=== PATIENT | female | born 1980 | race Caucasian/White ===

== ENCOUNTER 2024-05-10 15:24 | Emergency (ER) | payer OTHER, SELFPAY ==
[2024-05-10] VITALS (51 sets, daily range): BP systolic 99–111; BP diastolic 5–59; PULSE 81–108; RESP 11–36; TEMP 36.9–37.4; O2SAT 98–100; BMI 21.4
--- NOTE | 2024-05-10 15:38 | EKG_ITS ---
[place] [id number] [address] Test Date: 2024-05-10 Pat Name: Merly Davis Department: Room: Gender: Female Certified Surgical First Assistant: SARA : 1980 Requested By: Order Number: [id number] Reading MD: Reinaldo Desai MD Measurements Intervals [place] Rate: 94 P: 79 NE: 136 QRS: 71 QRSD: 84 T: 40 QT: 350 QTc: 437 Interpretive Statements Normal sinus rhythm Nonspecific ST abnormality Electronically Signed On 05-11-2024 7:30:51 PST by Reinaldo Desai MD
[2024-05-10 16:19] LABS: Add Manual Diff / Slide Review NO; Basophils Absolute Auto 0 /uL (0-100); Basophils Percent Auto 0.6 % (0-2); Eosinophils Absolute Auto 0 /uL (0-450); Eosinophils Percent Auto 0.6 % (2-4); Lymphocytes Absolute Auto 1700 /uL (1100-4500); Lymphocytes Percent Auto 27.9 % (25-40); Mean Corpuscular HGB Conc 34.5 % (30-36); Mean Corpuscular Hemoglobin 33.5 PG (26-34); Mean Corpuscular Volume 97.1 fL (80-100); Monocytes Absolute Auto 500 /uL (0-900); Monocytes Percent Auto 9.1 % (3-14); Neutrophils Absolute Auto 3700 /uL (1500-7000); Neutrophils Percent Auto 61.8 % (50-75); Platelet Count 240 X10^3/uL (150-400); Red Blood Cell Count 1.58 X10^6/uL (4.0-5.2); Red Cell Distribution Width 12.6 % (11.6-14.8); White Blood Cell Count 5.9 X10^3/uL (4.5-11.0)
[2024-05-10 16:21] LABS: Hematocrit 15.4 % (36-46); Hemoglobin 5.3 g/dL (12.0-16.0)
--- NOTE | 2024-05-10 16:22 | ED.RECABL ---
HPI - Recheck/Abnormal Lab/Rx <Francisco Arroyo MD - Last Filed: 05/15/24 15:33> General Chief Complaint: Urogenital-Female Stated Complaint: sent by [facility], blood transfusion Time Seen by Provider: 05/10/24 16:15 Source: patient Mode of arrival: Ambulatory History of Present Illness HPI narrative: [place] for vaginal bleeding may dizziness shortness of breath, anemia. Patient has had vaginal bleeding for the past 2-3 weeks. It has slowed down. As of now she is having welfare supervisor than usual menstrual bleeding. Denies any pain. Denies any previous history of uterine problems. No previous pregnancies. No family history of uterine cancer. No syncope Related Data Allergies Allergy/AdvReac Type Severity Reaction Status Date / Time No Known Drug Allergies Allergy Verified 05/10/24 16:15 Review of Systems <Francisco Arroyo MD - Last Filed: 05/15/24 15:33> Review of Systems Narrative: GENERAL: Negative chills, positive fatigue, positive malaise, negative fever, sweats. HEENT: Negative sinus pain, ear pain, sore throat RESPIRATORY: Positive dyspnea, negative cough CARDIOVASCULAR: Negative chest pain, palpitations GASTROINTESTINAL: Negative nausea, vomiting, abdominal pain : Negative dysuria, frequency, hematuria, positive vaginal bleeding MUSCULOSKELETAL: Negative muscle or bony pain SKIN: Negative rash, skin lesions NEUROLOGIC: Negative weakness, numbness, positive dizzy ROS Unobtainable: All systems reviewed & are unremarkable except as noted in HPI and below Patient History <Francisco Arroyo MD - Last Filed: 05/15/24 15:33> Medical History (Updated 05/10/24 @ 18:49 by Erma Bhakta MD) Cervical mass Social History Smoking Status: Current every day smoker Tobacco: How many years used: 25 Smoking Status: Current every day smoker tobacco type: cigarettes alcohol intake frequency: holidays/special occasions only Substance Use Type: does not use Exam <Francisco Arroyo MD - Last Filed: 05/15/24 15:33> Narrative Exam Narrative: GENERAL: in no distress, not toxic not dyspneic HEAD: Normocephalic. EYES: Pupils equal round pale conjunctiva ENT: Mucous membranes moist. NECK: Trachea midline. CARDIOVASCULAR: Regular rate and rhythm RESPIRATORY: Clear to auscultation. Breath sounds equal bilaterally. No wheezes, rales, or rhonchi. GASTROINTESTINAL: Abdomen soft, non-tender EXTREMITIES: No gross deformities. BACK: No flank tenderness. NEURO: AOx4. Clear speech SKIN: Warm and dry PSYCH: Not anxious, is cooperative Initial Vital Signs Initial Vital Signs: Vital Signs Pulse Rate 107 H 05/10/24 15:33 Pulse Oximetry 100 05/10/24 15:33 <Julia Mckeon MD - Last Filed: 05/12/24 00:21> Initial Vital Signs Initial Vital Signs: Vital Signs Pulse Rate 107 H 05/10/24 15:33 Pulse Oximetry 100 05/10/24 15:33 <Rudi Metcalf DO - Last Filed: 05/11/24 15:58> Initial Vital Signs Initial Vital Signs: Vital Signs Pulse Rate 107 H 05/10/24 15:33 Pulse Oximetry 100 05/10/24 15:33 Course <Francisco Arroyo MD - Last Filed: 05/15/24 15:33> Orders Ordered: Discontinued Medications Tranexamic Acid 1,000 mg/ (Sodium Chloride) 100 mls @ 200 mls/hr IV NOW ONE Stop: 05/10/24 19:08 Last Infusion: 05/10/24 21:20 Dose: Infused Documented By: Admin: 05/10/24 19:04 Dose: 200 mls/hr Documented By: RB Vital Signs Vital signs: Vital Signs - 8 hr 05/11/24 08:00 05/11/24 08:00 05/11/24 08:15 Temperature Pulse Rate 74 75 Respiratory Rate 10 L 18 Blood Pressure 88/51 L Pulse Oximetry 98 98 05/11/24 08:30 05/11/24 08:30 05/11/24 08:45 Temperature Pulse Rate 80 72 Respiratory Rate 17 18 Blood Pressure 90/55 L Pulse Oximetry 98 98 05/11/24 09:00 05/11/24 09:00 05/11/24 09:15 Temperature Pulse Rate 82 79 Respiratory Rate 19 17 Blood Pressure 94/50 L Pulse Oximetry 98 98 05/11/24 09:30 05/11/24 09:30 05/11/24 09:45 Temperature Pulse Rate 82 79 Respiratory Rate 11 L 16 Blood Pressure 94/50 L Pulse Oximetry 99 98 05/11/24 10:00 05/11/24 10:00 05/11/24 10:36 Temperature Pulse Rate 86 81 Respiratory Rate 16 27 H Blood Pressure 91/54 L Pulse Oximetry 99 98 05/11/24 10:37 05/11/24 10:37 05/11/24 10:45 Temperature Pulse Rate 79 88 Respiratory Rate 17 27 H Blood Pressure 90/56 L Pulse Oximetry 98 99 05/11/24 11:00 05/11/24 11:00 05/11/24 11:15 Temperature Pulse Rate 88 86 Respiratory Rate 16 Blood Pressure 98/61 Pulse Oximetry 100 99 05/11/24 11:30 05/11/24 11:30 05/11/24 11:45 Temperature Pulse Rate 83 78 Respiratory Rate 16 16 Blood Pressure 93/58 L Pulse Oximetry 99 98 05/11/24 12:00 05/11/24 12:00 05/11/24 12:15 Temperature Pulse Rate 87 76 Respiratory Rate 24 11 L Blood Pressure 95/58 L Pulse Oximetry 100 98 05/11/24 12:30 05/11/24 12:30 05/11/24 12:45 Temperature Pulse Rate 74 69 Respiratory Rate 17 18 Blood Pressure 90/54 L Pulse Oximetry 98 98 05/11/24 13:00 05/11/24 13:00 05/11/24 13:15 Temperature Pulse Rate 73 70 Respiratory Rate 15 17 Blood Pressure 93/54 L Pulse Oximetry 99 99 05/11/24 13:40 05/11/24 13:41 05/11/24 13:41 Temperature Pulse Rate 89 83 Respiratory Rate 22 19 Blood Pressure 102/60 Pulse Oximetry 99 99 05/11/24 13:45 05/11/24 14:00 05/11/24 14:00 Temperature Pulse Rate 82 91 H Respiratory Rate 23 Blood Pressure 95/54 L Pulse Oximetry 99 100 05/11/24 14:15 05/11/24 14:30 05/11/24 14:30 Temperature Pulse Rate 77 83 Respiratory Rate 16 11 L Blood Pressure 96/57 L Pulse Oximetry 98 98 05/11/24 14:45 05/11/24 15:00 05/11/24 15:00 Temperature Pulse Rate 80 74 Respiratory Rate 19 17 Blood Pressure 94/55 L Pulse Oximetry 100 99 05/11/24 15:15 05/11/24 15:30 05/11/24 15:30 Temperature Pulse Rate 76 75 Respiratory Rate 17 17 Blood Pressure 98/59 L Pulse Oximetry 99 99 05/11/24 15:38 Temperature 99 F Pulse Rate Respiratory Rate Blood Pressure Pulse Oximetry <Julia Mckeon MD - Last Filed: 05/12/24 00:21> Orders Ordered: Discontinued Medications Tranexamic Acid 1,000 mg/ (Sodium Chloride) 100 mls @ 200 mls/hr IV NOW ONE Stop: 05/10/24 19:08 Last Infusion: 05/10/24 21:20 Dose: Infused Documented By: Admin: 05/10/24 19:04 Dose: 200 mls/hr Documented By: ML Vital Signs Vital signs: Vital Signs - 8 hr 05/11/24 08:00 05/11/24 08:00 05/11/24 08:15 Temperature Pulse Rate 74 75 Respiratory Rate 10 L 18 Blood Pressure 88/51 L Pulse Oximetry 98 98 05/11/24 08:30 05/11/24 08:30 05/11/24 08:45 Temperature Pulse Rate 80 72 Respiratory Rate 17 18 Blood Pressure 90/55 L Pulse Oximetry 98 98 05/11/24 09:00 05/11/24 09:00 05/11/24 09:15 Temperature Pulse Rate 82 79 Respiratory Rate 19 17 Blood Pressure 94/50 L Pulse Oximetry 98 98 05/11/24 09:30 05/11/24 09:30 05/11/24 09:45 Temperature Pulse Rate 82 79 Respiratory Rate 11 L 16 Blood Pressure 94/50 L Pulse Oximetry 99 98 05/11/24 10:00 05/11/24 10:00 05/11/24 10:36 Temperature Pulse Rate 86 81 Respiratory Rate 16 27 H Blood Pressure 91/54 L Pulse Oximetry 99 98 05/11/24 10:37 05/11/24 10:37 05/11/24 10:45 Temperature Pulse Rate 79 88 Respiratory Rate 17 27 H Blood Pressure 90/56 L Pulse Oximetry 98 99 05/11/24 11:00 05/11/24 11:00 05/11/24 11:15 Temperature Pulse Rate 88 86 Respiratory Rate 16 Blood Pressure 98/61 Pulse Oximetry 100 99 05/11/24 11:30 05/11/24 11:30 05/11/24 11:45 Temperature Pulse Rate 83 78 Respiratory Rate 16 16 Blood Pressure 93/58 L Pulse Oximetry 99 98 05/11/24 12:00 05/11/24 12:00 05/11/24 12:15 Temperature Pulse Rate 87 76 Respiratory Rate 24 11 L Blood Pressure 95/58 L Pulse Oximetry 100 98 05/11/24 12:30 05/11/24 12:30 05/11/24 12:45 Temperature Pulse Rate 74 69 Respiratory Rate 17 18 Blood Pressure 90/54 L Pulse Oximetry 98 98 05/11/24 13:00 05/11/24 13:00 05/11/24 13:15 Temperature Pulse Rate 73 70 Respiratory Rate 15 17 Blood Pressure 93/54 L Pulse Oximetry 99 99 05/11/24 13:40 05/11/24 13:41 05/11/24 13:41 Temperature Pulse Rate 89 83 Respiratory Rate 22 19 Blood Pressure 102/60 Pulse Oximetry 99 99 05/11/24 13:45 05/11/24 14:00 05/11/24 14:00 Temperature Pulse Rate 82 91 H Respiratory Rate 23 Blood Pressure 95/54 L Pulse Oximetry 99 100 05/11/24 14:15 05/11/24 14:30 05/11/24 14:30 Temperature Pulse Rate 77 83 Respiratory Rate 16 11 L Blood Pressure 96/57 L Pulse Oximetry 98 98 05/11/24 14:45 05/11/24 15:00 05/11/24 15:00 Temperature Pulse Rate 80 74 Respiratory Rate 19 17 Blood Pressure 94/55 L Pulse Oximetry 100 99 05/11/24 15:15 05/11/24 15:30 05/11/24 15:30 Temperature Pulse Rate 76 75 Respiratory Rate 17 17 Blood Pressure 98/59 L Pulse Oximetry 99 99 05/11/24 15:38 Temperature 99 F Pulse Rate Respiratory Rate Blood Pressure Pulse Oximetry <Rudi Metcalf, DO - Last Filed: 05/11/24 15:58> Orders Ordered: Discontinued Medications Tranexamic Acid 1,000 mg/ (Sodium Chloride) 100 mls @ 200 mls/hr IV NOW ONE Stop: 05/10/24 19:08 Last Infusion: 05/10/24 21:20 Dose: Infused Documented By: Admin: 05/10/24 19:04 Dose: 200 mls/hr Documented By: RB Vital Signs Vital signs: Vital Signs - 8 hr 05/11/24 08:00 05/11/24 08:00 05/11/24 08:15 Temperature Pulse Rate 74 75 Respiratory Rate 10 L 18 Blood Pressure 88/51 L Pulse Oximetry 98 98 05/11/24 08:30 05/11/24 08:30 05/11/24 08:45 Temperature Pulse Rate 80 72 Respiratory Rate 17 18 Blood Pressure 90/55 L Pulse Oximetry 98 98 05/11/24 09:00 05/11/24 09:00 05/11/24 09:15 Temperature Pulse Rate 82 79 Respiratory Rate 19 17 Blood Pressure 94/50 L Pulse Oximetry 98 98 05/11/24 09:30 05/11/24 09:30 05/11/24 09:45 Temperature Pulse Rate 82 79 Respiratory Rate 11 L 16 Blood Pressure 94/50 L Pulse Oximetry 99 98 05/11/24 10:00 05/11/24 10:00 05/11/24 10:36 Temperature Pulse Rate 86 81 Respiratory Rate 16 27 H Blood Pressure 91/54 L Pulse Oximetry 99 98 05/11/24 10:37 05/11/24 10:37 05/11/24 10:45 Temperature Pulse Rate 79 88 Respiratory Rate 17 27 H Blood Pressure 90/56 L Pulse Oximetry 98 99 05/11/24 11:00 05/11/24 11:00 05/11/24 11:15 Temperature Pulse Rate 88 86 Respiratory Rate 16 Blood Pressure 98/61 Pulse Oximetry 100 99 05/11/24 11:30 05/11/24 11:30 05/11/24 11:45 Temperature Pulse Rate 83 78 Respiratory Rate 16 16 Blood Pressure 93/58 L Pulse Oximetry 99 98 05/11/24 12:00 05/11/24 12:00 05/11/24 12:15 Temperature Pulse Rate 87 76 Respiratory Rate 24 11 L Blood Pressure 95/58 L Pulse Oximetry 100 98 05/11/24 12:30 05/11/24 12:30 05/11/24 12:45 Temperature Pulse Rate 74 69 Respiratory Rate 17 18 Blood Pressure 90/54 L Pulse Oximetry 98 98 05/11/24 13:00 05/11/24 13:00 05/11/24 13:15 Temperature Pulse Rate 73 70 Respiratory Rate 15 17 Blood Pressure 93/54 L Pulse Oximetry 99 99 05/11/24 13:40 05/11/24 13:41 05/11/24 13:41 Temperature Pulse Rate 89 83 Respiratory Rate 22 19 Blood Pressure 102/60 Pulse Oximetry 99 99 05/11/24 13:45 05/11/24 14:00 05/11/24 14:00 Temperature Pulse Rate 82 91 H Respiratory Rate 23 Blood Pressure 95/54 L Pulse Oximetry 99 100 05/11/24 14:15 05/11/24 14:30 05/11/24 14:30 Temperature Pulse Rate 77 83 Respiratory Rate 16 11 L Blood Pressure 96/57 L Pulse Oximetry 98 98 05/11/24 14:45 05/11/24 15:00 05/11/24 15:00 Temperature Pulse Rate 80 74 Respiratory Rate 19 17 Blood Pressure 94/55 L Pulse Oximetry 100 99 05/11/24 15:15 05/11/24 15:30 05/11/24 15:30 Temperature Pulse Rate 76 75 Respiratory Rate 17 17 Blood Pressure 98/59 L Pulse Oximetry 99 99 05/11/24 15:38 Temperature 99 F Pulse Rate Respiratory Rate Blood Pressure Pulse Oximetry MDM - Recheck/Abnormal Lab/Rx <Francisco Arroyo MD - Last Filed: 05/15/24 15:33> Lab Data 05/10/24 21:05 05/10/24 16:04 Labs: Lab Results 05/10/24 05/10/24 05/10/24 Range/Units 15:57 16:04 21:05 WBC 5.9 (4.5-11.0) X10^3/uL RBC 1.58 L (4.0-5.2) X10^6/uL Hgb 5.3 L* 7.2 L (12.0-16.0) g/dL Hct 15.4 L* 21.0 L (36-46) % MCV 97.1 (80-100) fL MCH 33.5 (26-34) PG MCHC 34.5 (30-36) % RDW 12.6 (11.6-14.8) % Plt Count 240 (150-400) X10^3/uL Neut % (Auto) 61.8 (50-75) % Lymph % (Auto) 27.9 (25-40) % [place] % (Auto) 9.1 (3-14) % Eos % (Auto) 0.6 L (2-4) % Baso % (Auto) 0.6 (0-2) % Neut # (Auto) 3700 (6466-0652) /uL Lymph # (Auto) 1700 (0697-3785) /uL [place] # (Auto) 500 (0-900) /uL Eos # (Auto) 0 (0-450) /uL Baso # (Auto) 0 (0-100) /uL Sodium 131 L (137-145) mmol/L Potassium 3.4 (3.4-5.1) mmol/L Chloride 102 (98-107) mmol/L Carbon Dioxide 26 (22-32) mmol/L BUN 16 (7-17) mg/dL Creatinine 0.63 (0.52-1.04) mg/dL Estimated GFR > 60 (>60) mL/min BUN/Creatinine Ratio 25.4 H (6-22) Glucose 123 H (70-100) mg/dL Calcium 8.9 (8.4-10.2) mg/dL Urine RBC 0-1/hpf (0-5/HPF) Urine WBC 0-1/hpf (0-5/HPF) Ur Squamous Epith Cells 1-5 /hpf (0-5/HPF) Urine Bacteria Occasional (0-1) (None) Urine Mucus 1+ H (Negative) Ur Culture Indicated? Cult not indicated Vol Urine Centrifuged 10ml (spun) Blood Type B Negative Antibody Screen Negative Crossmatch See Detail Point of Care Testing Test Results Negative Urine Dip Bedside Urine Glucose Negative Bedside Urine Bilirubin - Negative Bedside Urine Ketone - Negative Urine Specific [place] 1.020 Bedside Urine Occult Blood +/- Bedside Urine pH 6.0 Bedside Urine Protein - Negative Bedside Urine Urobilinogen - Negative Bedside Urine Nitrite - Negative Bedside Urine Leukocytes - Negative Esterase [facility] Narrative Medical decision making narrative: Patient arrives here with from [facility] on private vehicle for vaginal bleeding may dizziness shortness of breath, anemia. Patient has had vaginal bleeding for the past 2-3 weeks. It has slowed down. As of now she is having welfare supervisor than usual menstrual bleeding. Denies any pain. Denies any previous history of uterine problems. No previous pregnancies. No family history of uterine cancer. No syncope After history and exam CBC CMP type and screen transfuse 2 units MDM Medical records reviewed: No recent visit for this complaint Differential considered: Includes but not limited to uterine cancer dysfunctional uterine bleeding Lab Test results independently reviewed as above. Pertinent findings: Hemoglobin 5.3 Independently reviewed EKG normal sinus rhythm rate 94 Imaging studies independently reviewed: None indicated at this time Consultations: 4:49 p.m.. Spoke with director strategic account management, Dr. Bhakta, she will come and see patient. 5:[address] bhakta, has done a pelvic exam. This is likely cervical cancer and unable to keep patient here patient will need to be transferred. Treatments: 2 PRBC Re-evaluations: Patient does agree understand for admission for blood transfusion and director strategic account management consult Discussion: Appropriate for admission for blood transfusion angio man evaluation and treatment. Diagnosis: Anemia dysfunctional uterine bleeding 6:[address] Arroyo: Sign out to Dr. Mckeon, patient will need to be transferred for gynecology Oncology Services. Dr Bhakta has seen pt <Julia Mckeon MD - Last Filed: 05/12/24 00:21> Lab Data Labs: Lab Results 05/10/24 05/10/24 05/10/24 Range/Units 15:57 16:04 21:05 WBC 5.9 (4.5-11.0) X10^3/uL RBC 1.58 L (4.0-5.2) X10^6/uL Hgb 5.3 L* 7.2 L (12.0-16.0) g/dL Hct 15.4 L* 21.0 L (36-46) % MCV 97.1 (80-100) fL MCH 33.5 (26-34) PG MCHC 34.5 (30-36) % RDW 12.6 (11.6-14.8) % Plt Count 240 (150-400) X10^3/uL Neut % (Auto) 61.8 (50-75) % Lymph % (Auto) 27.9 (25-40) % [place] % (Auto) 9.1 (3-14) % Eos % (Auto) 0.6 L (2-4) % Baso % (Auto) 0.6 (0-2) % Neut # (Auto) 3700 (3123-3069) /uL Lymph # (Auto) 1700 (4986-5700) /uL [place] # (Auto) 500 (0-900) /uL Eos # (Auto) 0 (0-450) /uL Baso # (Auto) 0 (0-100) /uL Sodium 131 L (137-145) mmol/L Potassium 3.4 (3.4-5.1) mmol/L Chloride 102 (98-107) mmol/L Carbon Dioxide 26 (22-32) mmol/L BUN 16 (7-17) mg/dL Creatinine 0.63 (0.52-1.04) mg/dL Estimated GFR > 60 (>60) mL/min BUN/Creatinine Ratio 25.4 H (6-22) Glucose 123 H (70-100) mg/dL Calcium 8.9 (8.4-10.2) mg/dL Urine RBC 0-1/hpf (0-5/HPF) Urine WBC 0-1/hpf (0-5/HPF) Ur Squamous Epith Cells 1-5 /hpf (0-5/HPF) Urine Bacteria Occasional (0-1) (None) Urine Mucus 1+ H (Negative) Ur Culture Indicated? Cult not indicated Vol Urine Centrifuged 10ml (spun) Blood Type B Negative Antibody Screen Negative Crossmatch See Detail Point of Care Testing Test Results Negative Urine Dip Bedside Urine Glucose Negative Bedside Urine Bilirubin - Negative Bedside Urine Ketone - Negative Urine Specific [place] 1.020 Bedside Urine Occult Blood +/- Bedside Urine pH 6.0 Bedside Urine Protein - Negative Bedside Urine Urobilinogen - Negative Bedside Urine Nitrite - Negative Bedside Urine Leukocytes - Negative Esterase MDM Narrative Medical decision making narrative: Patient arrives here with from [facility] on private vehicle for vaginal bleeding may dizziness shortness of breath, anemia. Patient has had vaginal bleeding for the past 2-3 weeks. It has slowed down. As of now she is having welfare supervisor than usual menstrual bleeding. Denies any pain. Denies any previous history of uterine problems. No previous pregnancies. No family history of uterine cancer. No syncope After history and exam CBC CMP type and screen transfuse 2 units MDM Medical records reviewed: No recent visit for this complaint Differential considered: Includes but not limited to uterine cancer dysfunctional uterine bleeding Lab Test results independently reviewed as above. Pertinent findings: Hemoglobin 5.3 Independently reviewed EKG normal sinus rhythm rate 94 Imaging studies independently reviewed: None indicated at this time Consultations: 4:49 p.m.. Spoke with director strategic account management, Dr. Bhakta, she will come and see patient. 5:[address] bhakta, has done a pelvic exam. This is likely cervical cancer and unable to keep patient here patient will need to be transferred. Treatments: 2 PRBC Re-evaluations: Patient does agree understand for admission for blood transfusion and director strategic account management consult Discussion: Appropriate for admission for blood transfusion angio man evaluation and treatment. Diagnosis: Anemia dysfunctional uterine bleeding 6:[address] Arroyo: Sign out to Dr. Mckeon, patient will need to be transferred for gynecology Oncology Services. Dr Bhakta has seen pt Dr. Mckeon: Care of patient is signed out to me by Dr. Arroyo. Review of labs, imaging, OBGYN report reviewed. Patient resting comfortably in bed, she was in the middle of receiving her 2nd unit of packed red blood cells. She states that she was not having any bleeding at this time. Per [facility] recommendations 1g TXA administered. Will recheck Hgb after 2u PRBCs. requests that we let them know if patient starts bleeding again as then she would need higher level of care. Dr. Bhakta stated that if patient bled overnight while awaiting transport that she would come in and pack the patient. Hemoglobin after 2nd unit PRBCs 7.2. Since patient was at high-risk for bleeding an additional unit ordered for transfusion. No additional units we will be ordered unless patient begins bleeding. Care of patient signed over to Dr. Metcalf at shift change. Dr metcalf: Received turned over. Review patient's history and physical. Patient was remained stable. No continued bleeding. Has been accepted at the [facility]. We now have bed assignment. Transport has been arranged. Patient was stable for transport. <Rudi Metcalf, DO - Last Filed: 05/11/24 15:58> Lab Data Attestation: I reviewed the patient's lab results. Labs: Lab Results 05/10/24 05/10/24 05/10/24 Range/Units 15:57 16:04 21:05 WBC 5.9 (4.5-11.0) X10^3/uL RBC 1.58 L (4.0-5.2) X10^6/uL Hgb 5.3 L* 7.2 L (12.0-16.0) g/dL Hct 15.4 L* 21.0 L (36-46) % MCV 97.1 (80-100) fL MCH 33.5 (26-34) PG MCHC 34.5 (30-36) % RDW 12.6 (11.6-14.8) % Plt Count 240 (150-400) X10^3/uL Neut % (Auto) 61.8 (50-75) % Lymph % (Auto) 27.9 (25-40) % [place] % (Auto) 9.1 (3-14) % Eos % (Auto) 0.6 L (2-4) % Baso % (Auto) 0.6 (0-2) % Neut # (Auto) 3700 (3901-3294) /uL Lymph # (Auto) 1700 (5996-9823) /uL [place] # (Auto) 500 (0-900) /uL Eos # (Auto) 0 (0-450) /uL Baso # (Auto) 0 (0-100) /uL Sodium 131 L (137-145) mmol/L Potassium 3.4 (3.4-5.1) mmol/L Chloride 102 (98-107) mmol/L Carbon Dioxide 26 (22-32) mmol/L BUN 16 (7-17) mg/dL Creatinine 0.63 (0.52-1.04) mg/dL Estimated GFR > 60 (>60) mL/min BUN/Creatinine Ratio 25.4 H (6-22) Glucose 123 H (70-100) mg/dL Calcium 8.9 (8.4-10.2) mg/dL Urine RBC 0-1/hpf (0-5/HPF) Urine WBC 0-1/hpf (0-5/HPF) Ur Squamous Epith Cells 1-5 /hpf (0-5/HPF) Urine Bacteria Occasional (0-1) (None) Urine Mucus 1+ H (Negative) Ur Culture Indicated? Cult not indicated Vol Urine Centrifuged 10ml (spun) Blood Type B Negative Antibody Screen Negative Crossmatch See Detail Point of Care Testing Test Results Negative Urine Dip Bedside Urine Glucose Negative Bedside Urine Bilirubin - Negative Bedside Urine Ketone - Negative Urine Specific [place] 1.020 Bedside Urine Occult Blood +/- Bedside Urine pH 6.0 Bedside Urine Protein - Negative Bedside Urine Urobilinogen - Negative Bedside Urine Nitrite - Negative Bedside Urine Leukocytes - Negative Esterase MDM Narrative Medical decision making narrative: Patient arrives here with from [facility] on private vehicle for vaginal bleeding may dizziness shortness of breath, anemia. Patient has had vaginal bleeding for the past 2-3 weeks. It has slowed down. As of now she is having welfare supervisor than usual menstrual bleeding. Denies any pain. Denies any previous history of uterine problems. No previous pregnancies. No family history of uterine cancer. No syncope After history and exam CBC CMP type and screen transfuse 2 units MDM Medical records reviewed: No recent visit for this complaint Differential considered: Includes but not limited to uterine cancer dysfunctional uterine bleeding Lab Test results independently reviewed as above. Pertinent findings: Hemoglobin 5.3 Independently reviewed EKG normal sinus rhythm rate 94 Imaging studies independently reviewed: None indicated at this time Consultations: 4:49 p.m.. Spoke with director strategic account management, Dr. Bhakta, she will come and see patient. 5:[address] bhakta, has done a pelvic exam. This is likely cervical cancer and unable to keep patient here patient will need to be transferred. Treatments: 2 PRBC Re-evaluations: Patient does agree understand for admission for blood transfusion and director strategic account management consult Discussion: Appropriate for admission for blood transfusion angio man evaluation and treatment. Diagnosis: Anemia dysfunctional uterine bleeding 6:[address] Arroyo: Sign out to Dr. Mckeon, patient will need to be transferred for gynecology Oncology Services. Dr Bhakta has seen pt Dr. Mckeon: Care of patient is signed out to me by Dr. Arroyo. Review of labs, imaging, OBGYN report reviewed. Patient resting comfortably in bed, she was in the middle of receiving her 2nd unit of packed red blood cells. She states that she was not having any bleeding at this time. Per [facility] recommendations 1g TXA administered. Will recheck Hgb after 2u PRBCs. requests that we let them know if patient starts bleeding again as then she would need higher level of care. Dr. Bhakta stated that if patient bled overnight while awaiting transport that she would come in and pack the patient. Hemoglobin after 2nd unit PRBCs 7.2. Since patient was at high-risk for bleeding 1/3 unit ordered for transfusion. No additional units we will be ordered unless patient begins bleeding. Dr metcalf: Received turned over. Review patient's history and physical. Patient was remained stable. No continued bleeding. Has been accepted at the [facility]. We now have bed assignment. Transport has been arranged. Patient was stable for transport. Critical Care Time <Francisco Arroyo MD - Last Filed: 05/15/24 15:33> Critical Care Time Attestation: Critical Care Time 35 minutes: Critical care time is separate from other billable procedures. This critical care time includes consultation with family and other consulting doctors, review of records, and interpretation of data from labs, etc. Discharge Plan Departure Patient Disposition: [facility] Clinical Impression: DUB (dysfunctional uterine bleeding) Anemia Qualifiers: Anemia type: unspecified type Qualified Code(s): D64.9 - Anemia, unspecified Referrals: Kisha Peters PA-C [Primary Care Provider] -
[2024-05-10 16:23] LABS: BUN Creatinine Ratio 25.4 (6-22); Blood Urea Nitrogen 16 mg/dL (7-17); Calcium 8.9 mg/dL (8.4-10.2); Carbon Dioxide 26 mmol/L (22-32); Chloride 102 mmol/L (98-107); Estimated Glomerular Filt Rate > 60 mL/min (>60); Glucose 123 mg/dL (70-100); HEMOLYSIS < 15 (0-50); Potassium 3.4 mmol/L (3.4-5.1); Sodium 131 mmol/L (137-145)
[2024-05-10 17:02] LABS: Bacteria Urine Occasional (0-1); Culture Indicated Urine Cult Not Indicated; Mucus Urine 1+ (Negative); RBC Urine 0-1/HPF (0-5/HPF); Squamous Epithelial Cell Urine 1-5 /HPF (0-5/HPF); Urine Volume 10mL (spun); WBC Urine 0-1/HPF (0-5/HPF)
--- NOTE | 2024-05-10 17:36 | PC.NURSE ---
assisted Dr Cornelius with pelvic exam, pt tolerated well.
--- NOTE | 2024-05-10 18:00 | P.CONS_ITS ---
History of Present Illness Consult details Date Patient Seen: 05/10/24 Time Patient Seen: 17:00 Chief complaint: sent by [facility], blood transfusion Reason for consult: AUB to symptomatic anemia Requesting provider: Francisco Arroyo Narrative: 43yo nulliparous female presents to ED, transfer from [facility] for further management of AUB to symptomatic anemia. [employer] ARCHIT[employer] consulted by [facility] initially for transfer with request to route through ED for immediate triage and stabilization with planned ENTER[employer]ISE SECURITY ARCHITECT consultation on arrival. On arrival to ED patient labs confirmed profound acute blood loss anemia with h/h 5.3/15.4, mild relative hypotension without significant tachycardia. At time of presentation pt had reported to ED provider that her bleeding had slowed significantly this AM and had only had to change her tampon twice today. ENTERPRISE SECURITY ARCHITECT consulted for further evaluation for consideration of admission secondary to symptomatic anemia. On my interview patient is resting comfortably in bed, NAD but very pale in appearance. Patient states menarche at age 11, regular menses until approximately one year ago when it felt like her cycle was becoming somewhat irregular but not dramatically so, mild increase in bleeding but nothing that she felt was significant. 3 weeks ago with onset of her menses her bleeding became progressively heavier to the point where she would sit on the commode and just feel the blood drain out in addition to passage of large clots. [facility] for [facility] evaluation as she was starting to feel progressively ill and then subsequently was [place] to [facility]. Pt does note +postcoital bleeding for the last 4 months but no dyspareunia. +tobacco use, ~1/2ppd since early 20s. Denies significant personal medical history, states last ENTERPRISE SECURITY ARCHITECT exam was approximately 15yrs ago. Family hx notable for esophageal cancer (mother, ) and CVD (father, STEMI/vascular dementia, ). Meds Home Medications and Allergies Allergies Allergy/AdvReac Type Severity Reaction Status Date / Time No Known Drug Allergies Allergy Verified 05/10/24 16:15 Review of Systems Review of Systems ROS: Yes All systems reviewed with the patient and are negative except as otherwise documented Exam Vital Signs (past 8 hours): - 05/10/24 15:33 05/10/24 15:34 05/10/24 15:34 Temperature Pulse Rate 107 H 96 H Respiratory Rate Blood Pressure 111/59 L Pulse Oximetry 100 100 Oxygen Delivery Method 11/13/24 15:37 05/10/24 15:45 05/10/24 16:00 Temperature 98.9 F Pulse Rate 108 H 101 H 95 H Respiratory Rate 20 24 19 Blood Pressure 111/59 L Pulse Oximetry 100 100 100 Oxygen Delivery Method Room Air 05/10/24 16:15 05/10/24 16:30 05/10/24 16:30 Temperature Pulse Rate 94 H 100 H Respiratory Rate 12 20 Blood Pressure 99/57 L Pulse Oximetry 100 100 Oxygen Delivery Method 05/10/24 16:45 05/10/24 16:58 05/10/24 16:58 Temperature Pulse Rate 96 H 101 H Respiratory Rate 36 H Blood Pressure 110/55 L Pulse Oximetry 100 100 Oxygen Delivery Method 05/10/24 17:00 05/10/24 17:00 05/10/24 17:03 Temperature 98.7 F Pulse Rate 89 97 H Respiratory Rate 16 16 Blood Pressure 109/52 L 109/52 L Pulse Oximetry 100 Oxygen Delivery Method 05/10/24 17:15 05/10/24 17:20 05/10/24 17:21 Temperature 98.4 F Pulse Rate 102 H 95 H Respiratory Rate 15 16 Blood Pressure 101/53 L 101/53 L Pulse Oximetry 100 Oxygen Delivery Method 05/10/24 17:21 05/10/24 17:30 05/10/24 17:30 Temperature Pulse Rate 95 H 97 H Respiratory Rate 18 14 Blood Pressure 106/55 L Pulse Oximetry 100 100 Oxygen Delivery Method Oxygen Delivery Method Room Air Const General: cooperative, comfortable, No acute distress, frail appearing and ill appearing Nutritional Appearance: thin Orientation: alert, awake and oriented x3 Resp Effort & Inspection: normal respiratory effort and able to speak in complete sentences GI Inspection: normal to inspection Other: normal external female genitalia perineum and anus without rash or lesion urethral meatus wnl vaginal vault unremarkable 4-5cm hypervascularized mass encompassing entirety of cervix, palpable fullness of L parametrium +friability, approx 25cc bright red bleeding with minimal disruption of mass diffusely non-tender on bimanual exam, uterus palpates with some SHASHI/cervical bulk but mobile Skin General: no rashes or lesions noted Neuro General: patient alert, patient awake and patient oriented x3 Extrem General: normal to inspection Psych Mental Status: mental status grossly normal Judgment: judgment good Objective Labs 11/13/24 16:04 05/10/24 16:04 Labs: Laboratory Results - last 24 hr 05/10/24 05/10/24 15:57 16:04 WBC 5.9 RBC 1.58 L Hgb 5.3 L* Hct 15.4 L* MCV 97.1 MCH 33.5 MCHC 34.5 RDW 12.6 Plt Count 240 Neut % (Auto) 61.8 Lymph % (Auto) 27.9 [place] % (Auto) 9.1 Eos % (Auto) 0.6 L Baso % (Auto) 0.6 Neut # (Auto) 3700 Lymph # (Auto) 1700 [place] # (Auto) 500 Eos # (Auto) 0 Baso # (Auto) 0 Sodium 131 L Potassium 3.4 Chloride 102 Carbon Dioxide 26 BUN 16 Creatinine 0.63 Estimated GFR > 60 BUN/Creatinine Ratio 25.4 H Glucose 123 H Calcium 8.9 Urine RBC 0-1/hpf Urine WBC 0-1/hpf Ur Squamous Epith Cells 1-5 /hpf Urine Bacteria Occasional (0-1) Urine Mucus 1+ H Ur Culture Indicated? Cult not indicated Vol Urine Centrifuged 10ml (spun) Blood Type B Negative Antibody Screen Negative Crossmatch See Detail [facility] Medical History (Updated 05/10/24 @ 18:49 by Erma Atwood MD) Cervical mass Tobacco & Substance Use Smoking Status: Current every day smoker Tobacco: How many years used: 25 Assessment & Plan Assessment and plan (1) Cervical mass: Status: Acute Plan 43yo nulliparous female presents to ED for further evaluation of 3wk h/o AUB to symptomatic anemia, evidence of cervical neoplasm on exam concerning for malignancy With permission to speak openly and honestly with patient and spouse, clinical findings reviewed including strong concern for malignancy Recommendation for immediate transfer to tertiary center with structural steel erection supervisor onc for further evaluation and management given acuity of presentation Transfer accepted by , defer to ED team for further mgmt in advance of transport CT chest/abd/pelvis w/wo obtained for further care planning remainder per primary ED team Thank you for this consult. If patient develops recurrent heavy bleeding prior to transfer please do not hesitate to recall/re-page for interval evaluation including placement of monsel's packing as temporizing measure Time-Based Coding :: [TOTAL MINUTES] spent with patient and on the chart (including review of chart, obtaining history, exam, reviewing outside data, placing orders, documenting exam and treatment plan, and counseling patient) on [DATE].
--- NOTE | 2024-05-10 18:06 | DI.CT.S_ITS ---
PROCEDURE: CT CHEST ABD PEL W CON INDICATIONS: Dyspnea/abdominal pain TECHNIQUE: After the administration of intravenous contrast, 5 mm thick sections acquired from the lung apices to the symphysis. 5 mm coronal and sagittal reformats were performed, with additional 7 mm MIP reformats through the lungs. For radiation dose reduction, the following was used: automated exposure control, adjustment of mA and/or kV according to patient size. COMPARISON: None. FINDINGS: Image quality: Excellent. CHEST: Lower Neck: No enlarged lymph nodes. Thyroid: No thyroid nodules which require sonographic follow up, per consensus guidelines. Axillae: No enlarged lymph nodes. Chest Wall: Unremarkable. Lungs and Pleura: No pneumothorax or pleural effusions. No consolidation or suspicious nodules. Heart: Heart size is normal. No pericardial effusion. Thoracic Vessels: The aorta and pulmonary arteries demonstrate normal size. Mediastinum and Vickie: No enlarged lymph nodes. Esophagus: No wall thickening. No hiatal hernia. ABDOMEN: Liver: No solid mass. Liver is enlarged measuring 19.4 cm. Gallbladder: No radiopaque gallstones or wall thickening. Biliary ducts: No biliary dilation. Pancreas: No ductal dilation. Spleen: Size is within normal limits. Adrenal Glands: No adrenal nodules. Kidneys and Ureters: No hydronephrosis. No solid mass. No complex renal cystic lesion which requires follow up. Stomach and Bowel: Normal colonic caliber, without significant wall thickening. Moderate stool without obstruction. Peritoneum: No abnormal intraperitoneal fluid. No free air. Ventral Wall: No significant ventral hernia. Abdominal Nodes: No retroperitoneal or mesenteric adenopathy by size criteria. Vessels: Aorta and inferior vena cava are normal in size. PELVIS: Pelvic Organs: Unremarkable. Bladder: No bladder wall thickening, accounting for underdistention. Pelvic Nodes: No enlarged lymph nodes. Miscellaneous: No inguinal hernias are seen. Bones: No aggressive osseous abnormality. IMPRESSION: No acute process within the chest, abdomen or pelvis. Moderate colonic stool without obstruction. Dictated by: Karma Richards M.D. on 05/10/2024 at 19:27 Approved by: Karma Richards M.D. on 05/10/2024 at 19:32
[2024-05-10] MEDS: TRANEXAMIC ACID 1,000 MG in SODIUM CHLORIDE 0.9% 100 ML 200 MG IV (19:04)
[2024-05-10 21:26] LABS: Hemoglobin 7.2 g/dL (12.0-16.0)
[2024-05-11] VITALS (70 sets, daily range): BP systolic 86–104; BP diastolic 50–61; PULSE 69–107; RESP 9–34; TEMP 37.1–37.2; O2SAT 96–100
== END 2024-05-11 16:30 | disposition short-term general hospital (02) ==
LOC: ED 16:27 → AC 17:43 → ED 05-11 07:03
PROVIDERS: Emergency Medicine; Emergency Provider Emergency Medicine; PCP Physician Assistant; Referring Provider Emergency Medicine
DX: N93.8 Other specified abnormal uterine and vaginal bleeding (principal); D64.9 Anemia, unspecified; R06.02 Shortness of breath; N88.8 Other specified noninflammatory disorders of cervix uteri
CPT/HCPCS: 36415; 36430; 71260; 74177; 80048; 81003; 81015; 81025; 85014; 85018; 85025; 86850; 86900; 86901; 93005; 96365; 96366; 99285; P9016; Q9967